=== PATIENT | male | born 1965 | race African-American/Black ===

== ENCOUNTER 2017-11-02 16:22 | Emergency (ER) | payer SELFPAY ==
[2017-11-02 17:02] VITALS: BP 121/59; PULSE 92; TEMP 99.1; BMI 31.4
--- NOTE | 2017-11-02 17:10 | PDOC ---
Rapid Medical Evaluation Chief Complaint: Cold Symptoms Time Seen by Provider: 11/02/17 16:47 Medical Evaluation: Allergies Allergy/AdvReac Type Severity Reaction Status Date / Time No Known Allergies Allergy Verified 11/02/17 16:59 Vital Signs Temp Pulse Resp BP Pulse Ox 99.1 F 92 H 16 121/59 99 11/02/17 17:00 11/02/17 17:00 11/02/17 17:00 11/02/17 17:00 11/02/17 17:00 11/02/17 17:08 I have performed a brief in-person evaluation of this patient. The patient presents with a chief complaint of: embedded earring to right earlobe, Pertinent physical exam findings: swollen embedded screw-on, earring back I have ordered the following: nothing The patient will proceed to the ED for further evaluation.
--- NOTE | 2017-11-02 17:15 | PDOC ---
Rapid Medical Evaluation Chief Complaint: Cold Symptoms Time Seen by Provider: 11/02/17 16:47 Medical Evaluation: Allergies Allergy/AdvReac Type Severity Reaction Status Date / Time No Known Allergies Allergy Verified 11/02/17 16:59 Vital Signs Temp Pulse Resp BP Pulse Ox 99.1 F 92 H 16 121/59 99 11/02/17 17:00 11/02/17 17:00 11/02/17 17:00 11/02/17 17:00 11/02/17 17:00 11/02/17 17:1 I have performed a brief in-person evaluation of this patient. The patient presents with a chief complaint of: cough, chills and fevers x 5 days . noted blood tinged sputum today- + smoker, using OTCs Pertinent physical exam findings: appears mild ill, non toxic I have ordered the following: CXR The patient will proceed to the ED for further evaluation.
--- NOTE | 2017-11-02 17:31 | PDOC ---
History of Present Illness - General Chief Complaint: Cold Symptoms Stated Complaint: CHILLS, COUGH Time Seen by Provider: 11/02/17 16:47 History Source: Patient Exam Limitations: No Limitations - History of Present Illness Initial Comments: CHIEF COMPLAINT: 51 y/o afebrile male c/o fever, chills, body aches, cough, congestion for the past 5 days. HISTORY OF PRESENT ILLNESS: The patient has been taking mucinex for his symptoms. He did not have the flu shot this year. Vital signs on arrival are within normal limits. REVIEW OF SYSTEMS: GENERAL/CONSTITUTIONAL: +fever/chills. +body aches. No weakness. No weight change. HEAD, EYES, EARS, NOSE AND THROAT: +nasal congestion. No change in vision. No ear pain or discharge. No sore throat. CARDIOVASCULAR: No chest pain or shortness of breath. RESPIRATORY: +cough. No wheezing or hemoptysis. GASTROINTESTINAL: No abd pain, nausea, vomiting, diarrhea. GENITOURINARY: No dysuria, frequency, or change in urination. MUSCULOSKELETAL: No joint or muscle swelling or pain. No neck or back pain. SKIN: No rash or easy bruising. NEUROLOGIC: No headache, vertigo, loss of consciousness, or loss of sensation. PHYSICAL EXAM: GENERAL: The patient is awake, alert, and fully oriented, in no acute distress. He is non toxic but slightly ill appearing. HEAD: Normal with no signs of trauma. ENT: Pupils equal, round and reactive to light, extraocular movements intact, sclera anicteric, conjunctiva clear. Neck supple. Nasal congestion. LUNGS: Clear to auscultation bilaterally. Normal excursion. No respiratory distress or use of accessory muscles. CV: RRR, S1/S2, no MRG. Cap refill < 2 sec. ABDOMEN: Soft, non-distended, non-tender even to deep palpation, no hepatomegaly or splenomegaly, no masses. EXTREMITIES: Normal range of motion, no edema. NEUROLOGICAL: Normal speech, normal gait. CN II-XII grossly intact. PSYCH: Normal mood, normal affect. SKIN: Warm, dry, normal turgor, no rashes or lesions noted. Past History - Past Medical History Allergies/Adverse Reactions: Allergies Allergy/AdvReac Type Severity Reaction Status Date / Time No Known Allergies Allergy Verified 11/02/17 16:59 - Suicide/Smoking/Psychosocial Hx Smoking History: Current every day smoker Have you smoked in the past 12 months: Yes Number of Cigarettes Smoked Daily: 5 Information on smoking cessation initiated: No Drug/Substance Use Hx: No *Physical Exam - Vital Signs Last Vital Signs Temp Pulse Resp BP Pulse Ox 99.1 F 92 H 16 121/59 99 11/02/17 17:00 11/02/17 17:00 11/02/17 17:00 11/02/17 17:00 11/02/17 17:00 Medical Decision Making - Medical Decision Making A/P: 51 y/o male with flu like symptoms. Given smoking history CXR was ordered in [facility]. CXR IMPRESSION: No acute pathology Patient is outside window for tamiflu. Suggested he take tylenol and motrin for fever and body aches, drink plenty of fluids and rest. Instructed him to return to the ER with any worsening or concerning symptoms. The patient verbalizes understanding of all instructions, has no further questions and is awaiting discharge. *DC/Admit/Observation/Transfer Diagnosis at time of Disposition: Influenza - Discharge Dispostion Disposition: HOME Condition at time of disposition: Stable - Referrals - Patient Instructions Printed Discharge Instructions: DI for Influenza -- Adult Additional Instructions: Discharge Instructions: -You have the flu -Take 650mg of tylenol every 4 hours for fever/chills -Take 600mg of motrin every 6 hours with food for body aches -Drink plenty of fluids -Get lots of rest -Return to the ER with any worsening or concerning symptoms. - Post Discharge Activity Forms/Work/School Notes: Back to Work
== END 2017-11-02 17:54 | disposition home or self-care (01) ==
LOC: JERFT 16:22
DX: J11.1 Influenza due to unidentified influenza virus with other respiratory manifestations (principal); F17.210 Nicotine dependence, cigarettes, uncomplicated
CPT/HCPCS: 71046-TC; 99281-25